=== PATIENT | female | born 1950 | race Hispanic/Latino ===

== ENCOUNTER 2018-09-09 14:04 | Emergency (ER) | payer MEDICARE ==
[~2018-09-09] VITALS: Ht 157.5 cm; Wt 90.7 kg
[~2018-09-09 14:04] MED LIST: CIPRO500 MG PO; COZAAR25 MG PO; LEVAQUIN500 MG PO; LIDODERM700 MG TOP; NAPROXEN375 MG PO; NEXIUM40 MG PO; NORCO 5-325 TA1 EACH PO; PRAVASTATIN SOD40 MG PO; ULTRAM 50MG50 MG PO; VICTOZA 2-0.6 MG/0.1; ZOFRAN ODT4 MG SL
--- OUTSIDE RECORDS SUMMARY | 2018-09-09 14:07 | XMS REPORT ---
[facility] Address Unknown Phone Unavailable Care Team Providers Care Development Chemist Name Role Phone Unavailable Unavailable Payers Payer Name Policy Type Policy Number Effective Date Expiration Date Problems This patient has no known problems. Allergies, Adverse Reactions, Alerts Allergy Name Allergy Type Status Severity Reaction(s) Onset Date Inactive Date Treating Clinician Comments No Known Drug Intolerances DA Active U 2010-04-28 00:00:00 Medications This patient has no known medications.
--- NOTE | 2018-09-09 15:28 | Diagnostic Imaging Report ---
EXAMINATION: PA and lateral views of the chest. COMPARISON: None CLINICAL HISTORY: Back pain DISCUSSION: Lines/tubes: None. Lungs: The lungs are well inflated and clear. No pneumonia or pulmonary edema. Pleura: No pleural effusion or pneumothorax. Heart and mediastinum: The cardiomediastinal silhouette is normal. Bones and soft tissues: No acute bony abnormalities. Multilevel thoracic spondylosis. IMPRESSION: No acute cardiopulmonary abnormalities. Signed by: Dr. Jr Easley M.D. on 09/09/2018 3:25 PM
== END 2018-09-09 15:48 | disposition home or self-care (01) ==
LOC: MERGE 14:04 → FSED 14:04
DX: M54.6 Pain in thoracic spine (principal); S23.3XXA Sprain of ligaments of thoracic spine, initial encounter; X50.1XXA Overexertion from prolonged static or awkward postures, initial encounter; I10 Essential (primary) hypertension; E11.9 Type 2 diabetes mellitus without complications
CPT/HCPCS: 71046; 81003; 93005; 99283

== ENCOUNTER 2018-09-13 20:56 | Emergency (ER) | payer MEDICARE ==
[~2018-09-13] VITALS: Ht 157.5 cm; Wt 90.7 kg
[2018-09-13] MEDS ORDERED: CYCLOBENZAPRINE HCL 10 MG TAB PO NR (21:30)
[2018-09-13] MEDS ORDERED: TRAMADOL HCL 50 MG TAB PO NR (21:30)
== END 2018-09-13 22:10 | disposition home or self-care (01) ==
LOC: FSED 20:56 → MERGE 20:56 → FSED 22:10
DX: S29.012A Strain of muscle and tendon of back wall of thorax, initial encounter (principal); S39.012A Strain of muscle, fascia and tendon of lower back, initial encounter
CPT/HCPCS: 81003; 99283

== ENCOUNTER 2018-11-28 17:12 | Emergency (ER) | payer MEDICARE, OTHER ==
[~2018-11-28] VITALS: Ht 160 cm; Wt 98.0 kg
--- OUTSIDE RECORDS SUMMARY | 2018-11-28 17:15 | XMS REPORT ---
[facility] Address Unknown Phone Unavailable Care Team Providers Care Television Newscast Director Name Role Phone Duncan SOTO Unavailable Unavailable Problems This patient has no known problems. Allergies, Adverse Reactions, Alerts This patient has no known allergies or adverse reactions. Medications This patient has no known medications. Results Test Description Test Time Test Comments Text Results Atomic Results Result Comments CXR 2 VIEW - [facility] 2018-09-09 15:24:00 [place] [address] Patient Name: HAYLIE TORRES MR #: [id number] : 1950 Age/Sex: 68/F Req #: [id number] Adm Physician: Ordered by: NEPTALI SOTO MD Report #: [id number] [facility] Room/Bed: Procedure: [id number] [facility]OP[facility]/CXR 2 VIEW - [facility] Exam Date: 09/09/18 Exam Time: 1511 REPORT STATUS: Signed EXAMINATION: PA and lateral views of the chest. COMPARISON: None CLINICAL HISTORY: Back pain DISCUSSION: Lines/tubes: None. Lungs: The lungs are well inflated and clear. No pneumonia or pulmonary edema. Pleura: No pleural effusion or pneumothorax. Heart and mediastinum: The cardiomediastinal silhouette is normal. Bones and soft tissues: No acute bony abnormalities. Multilevel thoracic spondylosis. IMPRESSION: No acute cardiopulmonary abnormalities. Signed by: Dr. Martha Coreas M.D. on 09/09/2018 3:25 PM Dictated By: MARTHA COREAS MD 1525 Transcribed By: AILYN on 09/09/18 1525 COPY TO: NEPTALI SOTO MD
== END 2018-11-28 18:05 | disposition home or self-care (01) ==
LOC: FSED 17:12
DX: L02.212 Cutaneous abscess of back [any part, except buttock and flank] (principal); L72.3 Sebaceous cyst
CPT/HCPCS: 99283

== ENCOUNTER 2019-01-30 12:44 | Emergency (ER) | payer MEDICARE ==
[~2019-01-30] VITALS: Ht 160 cm; Wt 98.0 kg
[2019-01-30] MEDS ORDERED: KETOROLAC TROMETHAMINE 30 MG/ML VIAL IV STA (14:23)
[2019-01-30] MEDS ORDERED: IBUPROFEN 400 MG TAB PO ONE (14:30)
[2019-01-30] MEDS ORDERED: IOPAMIDOL 300MG/ML 100 ML INFUS..BTL IV ONE (15:00)
--- NOTE | 2019-01-30 15:02 | Diagnostic Imaging Report ---
EXAMINATION: CXR 2 VIEW - [facility] INDICATION: Right rib pain. COMPARISON: None FINDINGS: TUBES and LINES: None. LUNGS: Lungs are moderately inflated. Mild central vascular congestion. There is no evidence of pneumonia or pulmonary edema. PLEURA: No pleural effusion or pneumothorax. Linear likely bilateral skin folds project over the bilateral costophrenic angles. HEART AND MEDIASTINUM: The cardiomediastinal silhouette is unremarkable. The thoracic aorta is tortuous. BONES AND SOFT TISSUES: No acute osseous abnormality. Diffuse osteopenia. No evidence of displaced rib fracture. UPPER ABDOMEN: No free air under the diaphragm. IMPRESSION: No acute radiographic abnormality. Signed by: Dr. Yuriy Aggarwal MD on 01/30/2019 2:58 PM
--- NOTE | 2019-01-30 16:08 | Diagnostic Imaging Report ---
EXAM: CT Chest WITH contrast INDICATION: Right rib pain. COMPARISON: None TECHNIQUE: Chest was scanned utilizing a multidetector helical scanner from the lung apex through the level of the adrenal glands after administration of IV contrast. Coronal and sagittal reformations were obtained. Routine protocol was performed. IV CONTRAST: 100 mL of Isovue-370. RADIATION DOSE: Total DLP: 565.6 mGy*cm Estimated effective dose: (DLP x 0.014 x size factor) mSv Dose modulation, iterative reconstruction, and/or weight based adjustment of the mA/kV was utilized to reduce the radiation dose to as low as reasonably achievable. COMPLICATIONS: None FINDINGS: LINES/ TUBES: None. LUNGS AND AIRWAYS: The central airways are patent. Scattered dependent atelectatic changes. No evidence of pneumonia or pulmonary edema. PLEURA: No evidence of pleural effusion or pneumothorax. Prominent extrapleural fat in the right upper lobe on series 2, image 39. HEART AND MEDIASTINUM: The thyroid gland is incompletely visualized. No mediastinal, hilar or axillary lymphadenopathy. No pericardial effusion. Scattered coronary atherosclerosis. No evidence of central pulmonary embolism. UPPER ABDOMEN: Limited contrast-enhanced views of the upper abdomen. Diffuse mild fatty liver. Calcified granuloma at the hepatic dome. Status post cholecystectomy. BONES/SOFT TISSUES: No acute radiographic abnormality. No CT evidence of rib fracture. IMPRESSION: No acute CT findings in the chest. Signed by: Dr. Yuriy Aggarwal MD on 01/30/2019 4:05 PM
[2019-02-07] MEDS ORDERED: LOSARTAN POTAS100 MG PO (16:15)
[2019-02-07] MEDS ORDERED: VICTOZA 2-0.6 MG/0.1 INJ (16:15)
== END 2019-01-30 16:32 | disposition home or self-care (01) ==
LOC: FSED 12:44
DX: R07.89 Other chest pain (principal); E11.9 Type 2 diabetes mellitus without complications
CPT/HCPCS: 71046; 71260; 80048; 80076; 81003; 85025; 85379; 99284; J1885; Q9967

== ENCOUNTER → 2019-02-10 | Day surgery (SDC) | payer MEDICARE ==
[2019-02-07 11:10] LABS: BASOPHILS % 0.4 % (0.0-1.0); EOSINOPHILS # (AUTO) 0.2 (0.0-0.4); EOSINOPHILS % 2.8 % (0.0-6.0); HEMOGLOBIN 13.3 g/dL (12.0-16.0); LYMPHOCYTES # (AUTO) 2.4 (1.0-3.2); LYMPHOCYTES % 29.2 % (18.0-39.1); MEAN CORPUSCULAR HEMOGLOBIN 30.2 pg (28-32); MEAN CORPUSCULAR HGB CONC 34.1 g/dL (31-35); MEAN CORPUSCULAR VOLUME 88.6 fL (81-99); MONOCYTES # (AUTO) 0.6 (0.2-0.8); MONOCYTES % 6.7 % (4.4-11.3); NEUTROPHILS # (AUTO) 4.9 (2.1-6.9); NEUTROPHILS % 60.5 % (38.7-80.0); PLATELET COUNT 309 x10e3/uL (140-360); RED CELL DISTRIBUTION WIDTH 12.4 % (11.7-14.4)
--- NOTE | 2019-02-07 11:43 | Diagnostic Imaging Report ---
EXAMINATION: CHEST 2 VIEWS INDICATION: Pre-admit, preoperative radiographs. COMPARISON: CT chest 01/30/2019. FINDINGS: TUBES and LINES: None. LUNGS: Lungs are well inflated. Minimal patchy left basilar opacity, likely atelectasis. There is no evidence of pneumonia or pulmonary edema. PLEURA: No pleural effusion or pneumothorax. HEART AND MEDIASTINUM: The cardiomediastinal silhouette is unremarkable. BONES AND SOFT TISSUES: No acute osseous abnormality. UPPER ABDOMEN: No free air under the diaphragm. Surgical clips project over the upper abdomen. IMPRESSION: No acute radiographic abnormality. Signed by: Dr. Yuriy Aggarwal MD on 02/07/2019 11:39 AM
[2019-02-07 11:49] LABS: ALANINE AMINOTRANSFERASE 15 IU/L (0-55); ALBUMIN 3.5 g/dL (3.5-5.0); ALBUMIN/GLOBULIN RATIO 0.8 (0.8-2.0); ALKALINE PHOSPHATASE 131 IU/L (40-150); ANION GAP 12.7 mmol/L (8-16); BLOOD UREA NITROGEN 14 mg/dL (7-26); BUN/CREATININE RATIO 19 (6-25); CALCIUM 9.6 mg/dL (8.4-10.2); CARBON DIOXIDE 22 mmol/L (22-29); CHLORIDE 104 mmol/L (98-107); CREATININE, SERUM 0.74 mg/dL (0.57-1.11); EST GLOMERULAR FILTRATION RATE > 60 ML/MIN (60-); GLUCOSE 131 mg/dL (74-118); POTASSIUM 3.7 mmol/L (3.5-5.1); SODIUM 135 mmol/L (136-145)
[~2019-02-10] MED LIST changes: +BUPIVACAINE 0.25%/EPI 30ML SDV INJ ONE; +DEXAMETHASONE SOD PHOS INJ 4 MG/ML VIAL ONE; +FENTANYL CITRATE/PF 100MCG/2 ML INJ ONE; +HYDROCODONE/APAP 7.5MG-325MG 1 EA TAB ONE; +LIDOCAINE HCL 2% LOCAL INJ 5 ML SDV VIAL INJ ONE; +LOSARTAN POTAS100 MG PO; +MIDAZOLAM HCL 2 MG/2 ML VIAL ONE; +ONDANSETRON HCL INJ 2MG/ML 2ML 2 MG/ML VIAL ONE; +PROPOFOL IV EMULSION 10 MG/ML 20 ML VIAL ONE; +SEVOFLURANE INHAL SOLN 250 ML PEN BTL ONE; +VICTOZA 2-0.6 MG/0.1 INJ
[2019-02-10 13:30] VITALS: BP 129/81
--- NOTE | 2019-02-10 18:53 | Operative Report ---
DATE OF PROCEDURE: 02/10/2019 SURGEON: Christian Saini MD PREOPERATIVE DIAGNOSIS: Mass of the left hip. POSTOPERATIVE DIAGNOSIS: Mass of the left hip. OPERATION PERFORMED: Excision of mass of the left hip. ANESTHESIA: General. COMPLICATIONS: None. ESTIMATED BLOOD LOSS: Minimal. DESCRIPTION OF PROCEDURE: With the patient lying in bed in supine position, under good general anesthesia, the left hip area was prepped with Betadine solution and draped in the usual manner. The area overlying the mass was then infiltrated with 0.25% Marcaine with epinephrine. An incision was made immediately in the subcutaneous tissue. An encapsulated multilobulated mass was encountered, which was slowly and carefully from all the surrounding structures in the deeper aspect it was stuck to the lateral fascia. The mass is slowly and completely from all the attachments and totally and completely removed and sent for pathological examination. The whole area was thoroughly irrigated. Perfect hemostasis was ascertained. The subcutaneous tissue was then reapproximated with 3-0 Vicryl and the skin was closed with interrupted vertical mattress sutures of 3-0 silk. A dressing was applied. The sponge, lap, and needle count was correct. The patient tolerated the procedure well and returned to the recovery room in stable condition. MD ANASTASIA Santamaria/MODL /[id number]
== END | disposition home or self-care (01) ==
LOC: OR 07:51
PROVIDERS: ATTEND Surgery
DX: D17.24 Benign lipomatous neoplasm of skin and subcutaneous tissue of left leg (principal); E11.9 Type 2 diabetes mellitus without complications; I10 Essential (primary) hypertension; E66.01 Morbid (severe) obesity due to excess calories; I49.3 Ventricular premature depolarization; Z88.2 Allergy status to sulfonamides; Z01.810 Encounter for preprocedural cardiovascular examination; Z01.812 Encounter for preprocedural laboratory examination; Z01.818 Encounter for other preprocedural examination
CPT/HCPCS: 27043; 36415; 71046; 80053; 85025; 88304; 93005; J1100; J2001; J2250; J2405; J2704

== ENCOUNTER 2019-04-22 20:47 | Emergency (ER) | payer MEDICARE ==
[~2019-04-22] VITALS: Ht 160 cm; Wt 99.8 kg
[~2019-04-22 20:47] MED LIST changes: -BUPIVACAINE 0.25%/EPI 30ML SDV INJ ONE; -DEXAMETHASONE SOD PHOS INJ 4 MG/ML VIAL ONE; -FENTANYL CITRATE/PF 100MCG/2 ML INJ ONE; -HYDROCODONE/APAP 7.5MG-325MG 1 EA TAB ONE; -LIDOCAINE HCL 2% LOCAL INJ 5 ML SDV VIAL INJ ONE; -MIDAZOLAM HCL 2 MG/2 ML VIAL ONE; -ONDANSETRON HCL INJ 2MG/ML 2ML 2 MG/ML VIAL ONE; -PROPOFOL IV EMULSION 10 MG/ML 20 ML VIAL ONE; -SEVOFLURANE INHAL SOLN 250 ML PEN BTL ONE
--- OUTSIDE RECORDS SUMMARY | 2019-04-22 20:52 | XMS REPORT ---
[facility] Address Unknown Phone Unavailable Care Team Providers Care Welder Tool And Die Name Role Phone Lilian SENIOR Unavailable Unavailable AMANDA TIMMONS Unavailable Unavailable Duncan SOTO Unavailable Unavailable Problems This patient has no known problems. Allergies, Adverse Reactions, Alerts This patient has no known allergies or adverse reactions. Medications This patient has no known medications. Results Test Description Test Time Test Comments Text Results Atomic Results Result Comments CHEST 2 VIEWS 2019-02-07 11:37:00 [place] [address] Patient Name: HAYLIE TORRES MR #: [id number] : 1950 Age/Sex: 68/F Req #: [id number] Adm Physician: Ordered by: ARIELLE SENIOR MD Report #: [id number] Location: OR Room/Bed: Procedure: [id number] DX/CHEST 2 VIEWS Exam Date: 02/07/19 Exam Time: 1050 REPORT STATUS: Signed EXAMINATION: CHEST 2 VIEWS INDICATION: Pre-admit, preoperative radiographs. COMPARISON: CT chest 01/30/2019. FINDINGS: TUBES and LINES: None. LUNGS: Lungs are well inflated. Minimal patchy left basilar opacity, likely atelectasis. There is no evidence of pneumonia or pulmonary edema. PLEURA: No pleural effusion or pneumothorax. HEART AND MEDIASTINUM: The cardiomediastinal silhouette is unremarkable. BONES AND SOFT TISSUES: No acute osseous abnormality. UPPER ABDOMEN: No free air under the diaphragm. Surgical clips project over the upper abdomen. IMPRESSION: No acute radiographic abnormality. Signed by: Dr. Go Montenegro MD on 02/07/2019 11:39 AM Dictated By: GO MONTENEGRO MD 113 Transcribed By: AILYN on 02/07/19 1139 COPY TO: ARIELLE SENIOR MD CT CHEST WITH CONTRAST-[facility] 2019-01-30 15:54:00 [place] [address] Patient Name: HAYLIE TORRES MR #: [id number] : 1950 Age/Sex: 68/F Req #: [id number] Adm Physician: Ordered by: AMANDA TIMMONS MD Report #: [id number] Location: [facility] Room/Bed: Procedure: [id number] HOPD/CT CHEST WITH CONTRAST-[facility] Exam Date: 01/30/19 Exam Time: 1516 REPORT STATUS: Signed EXAM: CT Chest WITH contrast INDICATION: Right rib pain. COMPARISON: None TECHNIQUE: Chest was scanned utilizing a multidetector helical scanner from the lung apex through the level of the adrenal glands after administration of IV contrast. Coronal and sagittal reformations were obtained. Routine protocol was performed. IV CONTRAST: 100 mL of Isovue-370. RADIATION DOSE: Total DLP: 565.6 mGy*cm Estimated effective dose: (DLP x 0.014 x size factor) mSv Dose modulation, iterative reconstruction, and/or weight based adjustment of the mA/kV was utilized to reduce the radiation dose to as low as reasonably achievable. COMPLICATIONS: None FINDINGS: LINES/ TUBES: None. LUNGS AND AIRWAYS: The central airways are patent. Scattered dependent atelectatic changes. No evidence of pneumonia or pulmonary edema. PLEURA: No evidence of pleural effusion or pneumothorax. Prominent extrapleural fat in the right upper lobe on series 2, image 39. HEART AND MEDIASTINUM: The thyroid gland is incompletely visualized. No mediastinal, hilar or axillary lymphadenopathy. No pericardial effusion. Scattered coronary atherosclerosis. No evidence of central pulmonary embolism. UPPER ABDOMEN: Limited contrast-enhanced views of the upper abdomen. Diffuse mild fatty liver. Calcified granuloma at the hepatic dome. Status post cholecystectomy. BONES/SOFT TISSUES: No acute radiographic abnormality. No CT evidence of rib fracture. IMPRESSION: No acute CT findings in the chest. Signed by: Dr. Go Montenegro MD on 01/30/2019 4:05 PM Dictated By: GO MONTENEGRO MD 160 Transcribed By: AILYN on 01/30/19 160 COPY TO: AMANDA TIMMONS MD CXR 2 VIEW - [facility] 2019-01-30 14:53:00 [place] [address] Patient Name: HAYLIE TORRES MR #: [id number] : 1950 Age/Sex: 68/F Req #: [id number] Adm Physician: Ordered by: AMANDA TIMMONS MD Report #: [id number] Location: [facility] Room/Bed: Procedure: [id number] HOPD/CXR 2 VIEW - [facility] Exam Date: Exam Time: REPORT STATUS: Signed EXAMINATION: CXR 2 VIEW - [facility] INDICATION: Right rib pain. COMPARISON: None FINDINGS: TUBES and LINES: None. LUNGS: Lungs are moderately inflated. Mild central vascular congestion. There is no evidence of pneumonia or pulmonary edema. PLEURA: No pleural effusion or pneumothorax. Linear likely bilateral skin folds project over the bilateral costophrenic angles. HEART AND MEDIASTINUM: The cardiomediastinal silh ouette is unremarkable. The thoracic aorta is tortuous. BONES AND SOFT TISSUES: No acute osseous abnormality. Diffuse osteopenia. No evidence of displaced rib fracture. UPPER ABDOMEN: No free air under the diaphragm. IMPRESSION: No acute radiographic abnormality. Signed by: Dr. Go Montenegro MD on 01/30/2019 2:58 PM Dictated By: GO MONTENEGRO MD 1610 Transcribed By: AILYN on 01/30/19 4642 COPY TO: AMANDA TIMMONS MD CXR 2 VIEW - [facility] 2018-09-09 15:24:00 [place] [address] Patient Name: HAYLIE TORRES MR #: [id number] : 1950 Age/Sex: 68/F Req #: [id number] Adm Physician: Ordered by: NEPTALI SOTO MD Report #: [id number] Location: [facility] Room/Bed: Procedure: [id number] HOPD/CXR 2 VIEW - [facility] Exam Date: 09/09/18 Exam Time: 1511 REPORT [...]
--- NOTE | 2019-04-22 23:00 | Diagnostic Imaging Report ---
EXAM: Abdomen 4 radiographs INDICATION: Abdominal pain ^[id number] ^[id number] COMPARISON: Abdominal radiograph dated 09/13/2012 FINDINGS: Nonobstructive bowel gas pattern. No signs of pneumoperitoneum. Mild gaseous distention of transverse and ascending colon. Moderate colonic stool burden. Right upper quadrant surgical clips, likely related to cholecystectomy. No acute osseous abnormality. Degenerative changes of spine. IMPRESSION: Nonobstructive bowel gas pattern. Signed by: Dr. Abdias Gaming MD on 04/22/2019 10:57 PM
[2019-04-22 23:35] VITALS: BP 153/91
== END 2019-04-22 23:54 | disposition home or self-care (01) ==
LOC: FSED 20:47
DX: A08.4 Viral intestinal infection, unspecified (principal); E87.6 Hypokalemia; I10 Essential (primary) hypertension; E11.9 Type 2 diabetes mellitus without complications; Z79.84 Long term (current) use of oral hypoglycemic drugs; Z88.2 Allergy status to sulfonamides
CPT/HCPCS: 36415; 74022; 83690; 99283

== ENCOUNTER 2024-10-02 12:01 | Emergency (ER) | payer MEDICARE ==
[~2024-10-02] VITALS: Ht 162.6 cm; Wt 95.8 kg
[2024-10-02 12:12] VITALS: PULSE 82; RESP 16; TEMP 98.1
[2024-10-02] MEDS ORDERED: OZEMPIC1 MG/0.71 (12:40)
[2024-10-02] MEDS: SODIUM CHLORIDE 0.9% 1000ML 1,000 ML IV ONE (13:30)
[2024-10-02] MEDS: KETOROLAC TROMETHAMINE 30 MG/ML VIAL IV STA (13:30)
[2024-10-02 15:48] VITALS: BP 143/67; PULSE 70; RESP 18; TEMP 98.3; O2SAT 98
[2024-10-08] MEDS ORDERED: AZITHROMYCIN250 MG PO (10:20)
== END 2024-10-02 14:39 | disposition home or self-care (01) ==
LOC: FSED 12:15
DX: R06.02 Shortness of breath (principal); B34.9 Viral infection, unspecified; R05.9 Cough, unspecified; I10 Essential (primary) hypertension; E11.9 Type 2 diabetes mellitus without complications; Z11.52 Encounter for screening for COVID-19
CPT/HCPCS: 71046; 99284; J1885; J7030